=== PATIENT | female | born 1980 | race Hispanic/Latino ===

== ENCOUNTER 2022-10-20 21:16 | Emergency (ER) | payer SELFPAY ==
[~2022-10-20 21:16] MED LIST: Iopamidol 370 76% 100 ML VIAL ONE; Sodium Chloride 0.9% 1,000 ML BAG ONE
[2022-10-20] MEDS ORDERED: HYDROmorphone 0.5 MG/0.5 ML SYRINGE ONE (22:18)
[2022-10-20 22:31] LABS: #Basophils 0.1 thou/uL (0.0-0.2); #Lymphocytes 0.4 thou/uL (1.20-3.40); #Monocytes 0.3 thou/uL (0.11-0.59); #Neutrophils 11.8 thou/uL (1.40-6.50); %Basophils 0.8 % (0.0-1.0); %Monocytes 2.2 % (0.0-10.0); Anisocytosis SLIGHT = 6-15 cells (100X) (0-5/hpf); Hemoglobin 13.3 g/dL (12.0-16.0); MDiff Complete? YES; Mean Corpuscular Volume 90.8 fl (78.0-98.0); Mean Platelet Volume 12.7 fL (7.4-10.4); Platelet Adequacy Comment Appears Decreased; Platelet Count 118 10x3/uL (130-400); RBC Distribution Width 15.5 % (11.5-14.5); Red Blood Cell (RBC) Count 4.59 mill/uL (4.20-5.40); White Blood Cell (WBC) Count 12.6 10x3/uL (4.8-10.8)
[2022-10-20 22:40] LABS: ALT (SGPT) 82 U/L (8-55); AST (SGOT) 142 U/L (5-34); Albumin 2.4 g/dL (3.5-5.0); Alkaline Phosphatase 823 U/L (40-110); Anion Gap 21 mmol/L (10-20); BUN (Urea Nitrogen) 118 mg/dL (7.0-18.7); Bilirubin, Total 2.6 mg/dL (0.2-1.2); Calc. Creatinine Clearance 0 mL/min (70-130); Calcium 9.3 mg/dL (7.8-10.44); Carbon Dioxide 17 mmol/L (22-29); Chloride 106 mmol/L (98-107); Estimated GFR 30; Globulin 3.2 g/dL (2.4-3.5); Glucose 109 mg/dL (70-105); Lipase 24 U/L (8-78); Potassium 4.5 mmol/L (3.5-5.1); Protein, Total 5.6 g/dL (6.0-8.3); Sodium 139 mmol/L (136-145)
[2022-10-20] MEDS ORDERED: Sodium Chloride 0.9% 2,000 ML ONE (23:21)
[2022-10-21 00:05] LABS: Bilirubin Negative (Negative); Blood, Urine Negative (Negative); Glucose, Urine (Dipstick) Negative (Negative); Ketone, Urine Negative (Negative); Leukocyte Negative (Negative); Nitrite Negative (Negative); Protein, Urine (Dipstick) 30 mg/dL (Neg-Trace); pH, Urine 5.5 (5.0-9.0)
[2022-10-21 00:09] LABS: CAUTI Indications for Culture Dysuria,urgency,freq; Clarity Hazy (Clear); RBC/HPF 0-3 HPF (0-3); WBC/HPF 0-3 HPF (0-3)
[2022-10-21 00:10] LABS: Bacteria/HPF Rare-Few HPF (None Seen); Squamous Epithelial 0-3 HPF (0-3)
[2022-10-21 00:11] LABS: Urine Culture Reflex No No
[2022-10-21] MEDS ORDERED: HYDROcodone/Acetaminophen 10/325 mg Tablet ONE (00:48)
== END 2022-10-21 00:50 | disposition home or self-care (01) ==
LOC: MADERS 21:16
DX: M54.50 Low back pain, unspecified (principal); R10.31 Right lower quadrant pain; E66.9 Obesity, unspecified
CPT/HCPCS: 74177; 80053; 81001; 83605; 83690; 85025; 87040; 87077; 87149; 87186; 96374; J1170; J7050; Q9967